=== PATIENT | female | born 2000 | race Two or more races ===

== ENCOUNTER 2021-12-07 01:59 | Inpatient (IN) | payer OTHER ==
[~2021-12-07] VITALS: Ht 160 cm; Wt 66.2 kg
[2021-12-07] MEDS ORDERED: PRENATAL CAPLE1 EAC1 PO (04:02)
[2021-12-07] MEDS ORDERED: IRON236 MG PO (04:03)
== END 2021-12-09 11:41 | disposition home or self-care (01) | DRG 807 ==
LOC: OB/GYN 01:59 → LDR 01:59 → OB/GYN 14:34
PROVIDERS: ADMIT Specialist; ATTEND Specialist
PROC: 10E0XZZ Delivery of Products of Conception, External Approach (ICD-10-PCS; principal; 2021-12-07)
PROC: 0W8NXZZ Division of Female Perineum, External Approach (ICD-10-PCS; 2021-12-07)
PROC: 4A1HXCZ Monitoring of Products of Conception, Cardiac Rate, External Approach (ICD-10-PCS; 2021-12-07)
DX: O80 Encounter for full-term uncomplicated delivery (principal); Z37.0 Single live birth; Z3A.38 38 weeks gestation of pregnancy; Z20.822 Contact with and (suspected) exposure to COVID-19